=== PATIENT | female | born 1960 | race Caucasian/White ===

== ENCOUNTER 2019-08-30 06:41 | Day surgery (SDC) | payer BC ==
[~2019-08-30 06:41] MED LIST: ceFAZolin 1 GM in Premix Bag 1 BAG IV ONE
--- NOTE | 2019-08-30 07:06 | PCM.PREANE ---
Preanesthetic Assessment - Anesthesia/Transfusion/Family Hx Anesthesia History: Prior Anesthesia Without Reaction Family History of Anesthesia Reaction: No Transfusion History: No Prior Transfusion(s) - Review of Systems General: No Symptoms Pulmonary: No Symptoms Cardiovascular: No Symptoms Gastrointestinal: No Symptoms Neurological: No Symptoms Other: Reports: None - Physical Assessment NPO Status Date: 08/29/19 Height: 5 ft 2 in Weight: 65.771 kg ASA Class: 2 Mental Status: Alert & Oriented x3 Airway Class: Mallampati = 2 Dentition: Reports: Normal Dentition ROM/Head Extension: Full Lungs: Clear to Auscultation, Normal Respiratory Effort Cardiovascular: Regular Rate, Regular Rhythm - Allergies Allergies/Adverse Reactions: Allergies Allergy/AdvReac Type Severity Reaction Status Date / Time No Known Allergies Allergy Verified 08/30/19 07:02 - Blood Blood Available: No - Anesthesia Plan Pre-Op Medication Ordered: None - Acknowledgements Anesthesia Type Planned: General Anesthesia Pt an Appropriate Candidate for the Planned Anesthesia: Yes Alternatives and Risks of Anesthesia Discussed w Pt/Guardian: Yes Pt/Guardian Understands and Agrees with Anesthesia Plan: Yes PreAnesthesia Questionnaire HEENT History: Reports: Other (See Below) Other HEENT History: wears glasses/contacts Cardiovascular History: Reports: None Respiratory History: Reports: None Gastrointestinal History: Reports: Other (See Below) Other Gastrointestinal History: occasional heartburn Genitourinary History: Reports: None PERSONAL PROTECTION SPECIALIST History: Reports: Musculoskeletal History: Reports: None Neurological History: Reports: None Psychiatric History: Reports: None Endocrine/Metabolic History: Reports: None Hematologic History: Reports: None Immunologic History: Reports: None Oncologic (Cancer) History: Reports: None Dermatologic History: Reports: None - Past Surgical History Head Surgeries/Procedures: Reports: None HEENT Surgical History: Reports: Tonsillectomy Cardiovascular Surgical History: Reports: None Respiratory Surgical History: Reports: None GI Surgical History: Reports: None Female Surgical History: Reports: Breast Biopsy Endocrine Surgical History: Reports: None Neurological Surgical History: Reports: None Musculoskeletal Surgical History: Reports: None Oncologic Surgical History: Reports: Biopsy of Breast Dermatological Surgical History: Reports: Other (See Below) - SUBSTANCE USE Smoking Status *Q: Former Smoker Tobacco Use Within Last Twelve Months: No - HOME MEDS Home Medications: Home Meds Melatonin 10 mg PO BEDTIME 08/26/19 [History] Niacin 1 tab PO DAILY 08/26/19 [History] [place]-3/DHA/Epa/Fish Oil [Fish Oil 1,000 mg Softgel] 1 tab PO DAILY 08/26/19 [ History] estradioL [Estradiol] 10 mcg VAG ASDIRECTED 08/26/19 [History] - CURRENT (IN HOUSE) MEDS Current Meds: Current Medications Lactated Ringer's (Ringers, Lactated) 1,000 mls @ 125 mls/hr IV ASDIRECTED [place] Discontinued Medications Cefazolin Sodium/Dextrose 1 gm (/ Premix) 50 mls @ 100 mls/hr IV ONETIME ONE Stop: 08/30/19 05:29
[2019-08-30] MEDS: Lactated Ringers 1,000 ML IV SCH ×2 (07:15→12:43)
[2019-08-30] MEDS ORDERED: Propofol 200 MG/20 ML SDV ONE (07:19)
[2019-08-30] MEDS ORDERED: Midazolam 1 MG/ML 2 ML SDV ONE (07:20)
[2019-08-30] MEDS ORDERED: Lidocaine 2% 5 ML SDV ONE (07:20)
[2019-08-30] MEDS ORDERED: fentaNYL 250 MCG/5 ML SDV ONE (07:20)
[2019-08-30] MEDS ORDERED: Rocuronium Bromide 50 MG/5 ML Syringe ONE (07:21)
[2019-08-30] MEDS ORDERED: Fluorescein 5 ML Vial ONE (07:32)
[2019-08-30 07:38] LABS: BLOOD UREA NITROGEN,BUN 10 mg/dL (7.0-18.0); CARBON DIOXIDE,CO2 24.1 mmol/L (21.0-32.0); CHLORIDE,CL 105 mmol/L (98-107); GLUCOSE RANDOM 106 mg/dL (74-106); SODIUM,NA 141 mmol/L (136-145)
[2019-08-30] MEDS ORDERED: ePHEDrine 50 MG/ML SDV ONE (08:01)
[2019-08-30] MEDS ORDERED: Sodium Chloride 0.9% 20 ML ONE (08:01)
[2019-08-30] MEDS ORDERED: Dexamethasone 4 MG/ML 5 ML MDV ONE (08:32)
[2019-08-30] MEDS ORDERED: Ondansetron 4 MG/2 ML SDV ONE (08:32)
[2019-08-30] MEDS ORDERED: Sugammadex Sodium 200 MG/2 ML VIAL ONE (08:34)
[2019-08-30] MEDS ORDERED: 50% Dextrose in Water 50 ML Syringe IVPUSH PRN (08:35)
[2019-08-30] MEDS ORDERED: Albuterol 0.083% 2.5 MG/3 ML Neb Soln NEB PRN (08:35)
[2019-08-30] MEDS ORDERED: Atropine 0.1 MG/ML 10 ML Syringe IVPUSH PRN ×2 (08:35)
[2019-08-30] MEDS ORDERED: EPINEPHrine 1:10,000 1 MG/10 ML Syringe IVPUSH PRN (08:35)
[2019-08-30] MEDS ORDERED: fentaNYL 100 MCG/2 ML SDV IVPUSH PRN (08:35)
[2019-08-30] MEDS ORDERED: Naloxone 0.4 MG/ML Syringe IVPUSH PRN (08:35)
[2019-08-30] MEDS ORDERED: Ketorolac 30 MG/ML SDV IVPUSH PRN ×3 (08:37→09:21)
[2019-08-30] MEDS ORDERED: Ketorolac 30 MG/ML SDV IVPUSH ONE (09:21)
[2019-08-30] MEDS ORDERED: Ondansetron 4 MG/2 ML SDV IVPUSH PRN (09:21)
[2019-08-30] MEDS ORDERED: Promethazine 25 MG/ML SDV IM PRN (09:21)
[2019-08-30] MEDS ORDERED: Morphine 4 MG/ML Syringe IVPUSH PRN (09:21)
[2019-08-30] MEDS ORDERED: Acetaminophen/oxyCODONE 325-5 MG Tab PO PRN (09:21)
--- NOTE | 2019-08-30 09:26 | PCM.OPNOTE ---
- General Post-Op/Procedure Note Date of Surgery/Procedure: 08/30/19 Operative Procedure(s): TVH/anterior repair/culdoplasty/cystoscopy Findings: 3rd degree uterine prolapse with 2nd degree cystocele. Normal appearing ovaries. Bilateral patent ureters Pre Op Diagnosis: Symptomatic incomplete uterovaginal prolapse Post-Op Diagnosis: Same Anesthesia Technique: General ET Tube Primary Surgeon: Estella Buckner Fund Controller: Bernice Azar Fluid Replacement, Intraop: 1,000 EBL in mLs: 100 Complications: none known Condition: Good
--- NOTE | 2019-08-30 09:47 | PCM.POSTAN ---
POST ANESTHESIA ASSESSMENT - MENTAL STATUS Mental Status: Alert, Oriented - VITAL SIGNS Vital Signs: Last Vital Signs Temp 97.3 F 08/30/19 09:25 Pulse 90 08/30/19 09:40 Resp 12 08/30/19 09:40 BP 115/55 L 08/30/19 09:40 Pulse Ox 99 08/30/19 09:40 - RESPIRATORY Respiratory Status: Respiratory Rate WNL, Airway Patent, O2 Saturation Stable - CARDIOVASCULAR CV Status: Pulse Rate WNL, Blood Pressure Stable - GASTROINTESTINAL GI Status: No Symptoms - POST OP HYDRATION Hydration Status: Adequate & Stable
--- NOTE | 2019-08-30 10:06 | PCM.POSTAN ---
POST ANESTHESIA ASSESSMENT - MENTAL STATUS Mental Status: Oriented - VITAL SIGNS Vital Signs: Last Vital Signs Temp 36.3 C 08/30/19 09:25 Pulse 83 08/30/19 09:55 Resp 11 L 08/30/19 09:55 BP 110/54 L 08/30/19 09:55 Pulse Ox 95 08/30/19 09:55 - RESPIRATORY Respiratory Status: Respiratory Rate WNL, Airway Patent, O2 Saturation Stable, Supplemental Oxygen - CARDIOVASCULAR CV Status: Pulse Rate WNL, Blood Pressure Stable - GASTROINTESTINAL GI Status: No Symptoms - POST OP HYDRATION Hydration Status: Adequate & Stable
[2019-08-30] MEDS: Acetaminophen/oxyCODONE 325-5 MG Tab PO PRN ×3 (13:28→22:30)
--- NOTE | 2019-08-30 16:58 | PCM.SURGPN ---
- General Info Date of Service: 08/30/19 POD#: 0 Functional Status: Reports: Pain Controlled, Tolerating Diet, Ambulating - Review of Systems General: Reports: Fatigue. Denies: Fever, Weakness Pulmonary: Denies: Shortness of Breath Cardiovascular: Denies: Chest Pain, Palpitations, Lightheadedness Gastrointestinal: Reports: Abdominal Pain (mild pressure, cramping). Denies: Nausea, Vomiting Genitourinary: Denies: Flank Pain Musculoskeletal: Reports: No Symptoms Skin: Reports: No Symptoms Neurological: Reports: No Symptoms Psychiatric: Reports: No Symptoms - Patient Data Vitals - Most Recent: Last Vital Signs Temp 36.2 C 08/30/19 10:28 Pulse 81 08/30/19 11:15 Resp 16 08/30/19 11:15 BP 116/61 08/30/19 11:15 Pulse Ox 95 08/30/19 11:15 Weight - Most Recent: 65.771 kg I&O - Last 24 Hours: Intake & Output 08/30/19 08/30/19 08/30/19 06:59 14:59 22:59 Intake Total 2700 Output Total 75 Balance 2625 Lab Results Last 24 Hrs: Laboratory Results - last 24 hr 08/30/19 08/30/19 08/30/19 Range/Units 07:08 07:08 07:08 WBC 6.26 (4.0-11.0) K/uL RBC 4.73 (4.30-5.90) M/uL Hgb 14.3 (12.0-16.0) g/dL Hct 43.6 (36.0-46.0) % MCV 92.2 (80.0-98.0) fL MCH 30.2 (27.0-32.0) pg MCHC 32.8 (31.0-37.0) g/dL RDW Std Deviation 48.1 (28.0-62.0) fl RDW Coeff of [place] 14 (11.0-15.0) % Plt Count 237 (150-400) K/uL MPV 9.40 (7.40-12.00) fL Nucleated RBC % 0.0 /100WBC Nucleated RBCs # 0 K/uL Sodium 141 (136-145) mmol/L Potassium 4.0 (3.5-5.1) mmol/L Chloride 105 (98-107) mmol/L Carbon Dioxide 24.1 (21.0-32.0) mmol/L BUN 10 (7.0-18.0) mg/dL Creatinine 0.8 (0.6-1.0) mg/dL Est Cr Clr Drug Dosing 59.15 mL/min Estimated GFR (MDRD) > 60.0 ml/min Glucose 106 (74-106) mg/dL Calcium 9.2 (8.5-10.1) mg/dL Blood Type A POSITIVE Antibody Screen NEGATIVE Med Orders - Current: Current Medications Albuterol (Proventil Neb Soln) 2.5 mg NEB ONETIME PRN PRN Reason: Wheezing Atropine Sulfate (Atropine 0.1 Mg/Ml) 0.5 mg IVPUSH ASDIRECTED PRN PRN Reason: Hypo-perfusion Atropine Sulfate (Atropine 0.1 Mg/Ml) 1 mg IVPUSH ASDIRECTED PRN PRN Reason: Hypo-Perfusion Dextrose/Water (Dextrose 50% In Water) 50 ml IVPUSH ASDIRECTED PRN PRN Reason: Hypoglycemia Docusate Sodium (Colace) 100 mg PO BID [facility] Epinephrine HCl (Epinephrine 1:10,000) 1 mg IVPUSH ASDIRECTED PRN PRN Reason: ACLS Guidelines Fentanyl (Sublimaze) 50 mcg IVPUSH Q5M PRN PRN Reason: Pain Lactated Ringer's (Ringers, Lactated) 1,000 mls @ 125 mls/hr IV ASDIRECTED [facility] Last Admin: 08/30/19 12:43 Dose: 125 mls/hr Ketorolac Tromethamine (Toradol) 30 mg IVPUSH Q6H PRN PRN Reason: Pain (severe 7-10) Stop: 09/04/19 09:21 Morphine Sulfate (Morphine) 4 mg IVPUSH Q2H PRN PRN Reason: Pain (severe 7-10) Last Admin: 08/30/19 11:22 Dose: 4 mg Naloxone HCl (Narcan) 0.1 mg IVPUSH ASDIRECTED PRN PRN Reason: Respiratory Depression Ondansetron HCl (Zofran) 4 mg IVPUSH Q6H PRN PRN Reason: Nausea/Vomiting Oxycodone/Acetaminophen (Percocet 325-5 Mg) 1 tab PO Q4H PRN PRN Reason: Pain (moderate 4-6) Oxycodone/Acetaminophen (Percocet 325-5 Mg) 2 tab PO Q4H PRN PRN Reason: Pain (moderate 4-6) Last Admin: 08/30/19 13:28 Dose: 2 tab Promethazine HCl (Phenergan) 25 mg IM Q6H PRN PRN Reason: Nausea/Vomiting Discontinued Medications Dexamethasone (Dexamethasone) Confirm Administered Dose 20 mg .ROUTE .STK-MED ONE Stop: 08/30/19 08:33 Ephedrine Sulfate (Ephedrine Sulfate) Confirm Administered Dose 50 mg .ROUTE .STK-MED ONE Stop: 08/30/19 08:02 Fentanyl (Sublimaze) Confirm Administered Dose 250 mcg .ROUTE .STK-MED ONE Stop: 08/30/19 07:21 Fluorescein Sodium (Ak-Fluor) Confirm Administered Dose 5 ml .ROUTE .STK-MED ONE Stop: 08/30/19 07:33 Cefazolin Sodium/Dextrose 1 gm (/ Premix) 50 mls @ 100 mls/hr IV ONETIME ONE Stop: 08/30/19 05:29 Last Admin: 08/30/19 10:42 Dose: Not Given Cefazolin Sodium/Dextrose (Ancef) Confirm Administered Dose 50 mls @ as directed .ROUTE .STK-MED ONE Stop: 08/30/19 07:46 Sodium Chloride (Normal Saline) Confirm Administered Dose 20 mls @ as directed .ROUTE .STK-MED ONE Stop: 08/30/19 08:02 Acetaminophen (Ofirmev) Confirm Administered Dose 100 mls @ as directed .ROUTE .STK-MED ONE Stop: 08/30/19 08:35 Ketorolac Tromethamine (Toradol) 30 mg IVPUSH Q6H PRN PRN Reason: Breakthrough Pain Stop: 09/04/19 08:37 Ketorolac Tromethamine (Toradol) 30 mg IVPUSH ONETIME PRN PRN Reason: Breakthrough Pain Ketorolac Tromethamine (Toradol) 30 mg IVPUSH ONETIME ONE Stop: 08/30/19 09:22 Last Admin: 08/30/19 11:15 Dose: Not Given Lidocaine (Xylocaine-Mpf 2%) Confirm Administered Dose 5 ml .ROUTE .STK-MED ONE Stop: 08/30/19 07:21 Midazolam HCl (Versed 1 Mg/Ml) Confirm Administered Dose 2 mg .ROUTE .STK-MED ONE Stop: 08/30/19 07:21 Ondansetron HCl (Zofran) Confirm Administered Dose 4 mg .ROUTE .STK-MED ONE Stop: 08/30/19 08:33 Propofol (Diprivan 20 Ml) Confirm Administered Dose 200 mg .ROUTE .STK-MED ONE Stop: 08/30/19 07:20 Rocuronium Fortuna (Rocuronium Fortuna) Confirm Administered Dose 50 mg .ROUTE .STK-MED ONE Stop: 08/30/19 07:22 Sugammadex Sodium (Bridion) Confirm Administered Dose 200 mg .ROUTE .STK-MED ONE Stop: 08/30/19 08:35 - Exam General: Alert, Oriented Lungs: Normal Respiratory Effort Cardiovascular: Regular Rate, Regular Rhythm GI/Abdominal Exam: Normal Bowel Sounds, Soft Extremities: Pedal Edema (trace). No: Priscilla's Sign Skin: Warm, Dry, Intact Psy/Mental Status: Alert, Normal Affect Sepsis Event Note - Evaluation Sepsis Screening Result: No Definite Risk - Focused Exam Vital Signs: Vital Signs Temp Pulse Resp BP Pulse Ox 08/30/19 11:15 81 16 116/61 95 08/30/19 11:00 79 16 121/64 95 08/30/19 10:40 78 16 116/69 96 08/30/19 10:28 36.2 C 81 16 116/58 L 96 08/30/19 10:00 82 11 L 109/60 95 08/30/19 09:55 83 11 L 110/54 L 95 08/30/19 09:50 88 11 L 108/60 94 L 08/30/19 09:45 87 12 109/52 L 95 08/30/19 09:40 90 12 115/55 L 99 08/30/19 09:35 90 12 114/54 L 96 08/30/19 09:30 92 12 110/57 L 98 08/30/19 09:25 36.3 C 76 16 118/51 L 98 08/30/19 07:25 75 16 108/71 97 Date Exam was Performed: 08/30/19 Time Exam was Performed: 16:46 - Problem List & Annotations (1) Incomplete uterovaginal prolapse SNOMED Code(s): 637261929 Code(s): N81.2 - INCOMPLETE UTEROVAGINAL PROLAPSE Status: Acute Current Visit: Yes - Problem List Review Problem List Initiated/Reviewed/Updated: Yes - My Orders Last 24 Hours: Active Orders 24 hr Category Date Time Status Patient Status [ADT] Routine ADT 08/30/19 05:00 Active Patient Status [ADT] Routine ADT 08/30/19 09:21 Active Antiembolic Devices [RC] PER UNIT ROUTINE Care 08/30/19 06:36 Active Antiembolic Devices [RC] PER UNIT ROUTINE Care 08/30/19 09:21 Active Notify Provider Intake and Out [RC] ASDIRECTED Care 08/30/19 09:21 Active Notify Provider Vital Signs [RC] ASDIRECTED Care 08/30/19 08:37 Active Notify Provider Vital Signs [RC] ASDIRECTED Care 08/30/19 09:21 Active Oxygen Therapy [RC] ASDIRECTED Care 08/30/19 09:21 Active Oxygen Therapy [RC] PRN Care 08/30/19 08:37 Active RT Aerosol Therapy [RC] ASDIRECTED Care 08/30/19 08:37 Active RT Aerosol Therapy [RC] ASDIRECTED Care 08/30/19 08:37 Active RT Incentive Spirometry [RC] Q2HWA Care 08/30/19 09:21 Active Up With Assistance [RC] PER UNIT ROUTINE Care 08/30/19 09:21 Active Up ad Isela [RC] PER UNIT ROUTINE Care 08/30/19 09:21 Active Urinary Catheter Removal [RC] Per Unit Routine Care 08/30/19 09:21 Active Vital Signs [RC] PER UNIT ROUTINE Care 08/30/19 05:00 Active Vital Signs [RC] PER UNIT ROUTINE Care 08/30/19 09:21 Active Regular Diet [DIET] Diet 08/30/19 Lunch Active BASIC METABOLIC PANEL,BMP [CHEM] AM Lab 08/31/19 05:11 Ordered CBC WITH AUTO DIFF [HEME] AM Lab 08/31/19 05:11 Ordered Acetaminophen/oxyCODONE [Percocet 325-5 MG] Med 08/30/19 09:21 Active 1 tab PO Q4H PRN Acetaminophen/oxyCODONE [Percocet 325-5 MG] Med 08/30/19 09:21 Active 2 tab PO Q4H PRN Albuterol [Proventil Neb Soln] Med 08/30/19 08:35 Active 2.5 mg NEB ONETIME PRN Atropine [Atropine 0.1 MG/ML] Med 08/30/19 08:35 Active 0.5 mg IVPUSH ASDIRECTED PRN Atropine [Atropine 0.1 MG/ML] Med 08/30/19 08:35 Active 1 mg IVPUSH ASDIRECTED PRN Dextrose 50% in Water Med 08/30/19 08:35 Active 50 ml IVPUSH ASDIRECTED PRN Docusate Sodium [Colace] Med 08/30/19 21:00 Active 100 mg PO BID EPINEPHrine [EPINEPHrine 1:10,000] Med 08/30/19 08:35 Active 1 mg IVPUSH ASDIRECTED PRN Ketorolac [Toradol] Med 08/30/19 09:21 Active 30 mg IVPUSH Q6H PRN Lactated Ringers [Ringers, Lactated] 1,000 ml Med 08/30/19 06:45 Active IV ASDIRECTED Morphine Med 08/30/19 09:21 Active 4 mg IVPUSH Q2H PRN Naloxone [Narcan] Med 08/30/19 08:35 Active 0.1 mg IVPUSH ASDIRECTED PRN Ondansetron [Zofran] Med 08/30/19 09:21 Active 4 mg IVPUSH Q6H PRN Promethazine [Phenergan] Med 08/30/19 09:21 Active 25 mg IM Q6H PRN fentaNYL [Sublimaze] Med 08/30/19 08:35 Active 50 mcg IVPUSH Q5M PRN Perineal Care [OM.PC] Per Unit Routine Oth 08/30/19 09:22 Ordered Peripheral IV Discontinue [OM.PC] Routine Oth 08/30/19 09:21 Ordered Peripheral IV Insertion Adult [OM.PC] Urgent Oth 08/30/19 05:00 Ordered Remove Vaginal Packing [OM.PC] Per Unit Routine Oth 08/30/19 09:22 Ordered SCD [Sequential Compression Device] [OM.PC] Routine Oth 08/30/19 06:36 Ordered Sequential Compression Device [OM.PC] Per Unit Routine Oth 08/30/19 05:00 Ordered Sequential Compression Device [OM.PC] Per Unit Routine Oth 08/30/19 09:21 Ordered Resuscitation Status Routine Resus Stat 08/30/19 09:21 Ordered Medication Orders Albuterol (Proventil Neb Soln) 2.5 mg NEB ONETIME PRN PRN Reason: Wheezing Atropine Sulfate (Atropine 0.1 Mg/Ml) 0.5 mg IVPUSH ASDIRECTED PRN PRN Reason: Hypo-perfusion Atropine Sulfate (Atropine 0.1 Mg/Ml) 1 mg IVPUSH ASDIRECTED PRN PRN Reason: Hypo-Perfusion Dextrose/Water (Dextrose 50% In Water) 50 ml IVPUSH ASDIRECTED PRN PRN Reason: Hypoglycemia Docusate Sodium (Colace) 100 mg PO BID [facility] Epinephrine HCl (Epinephrine 1:10,000) 1 mg IVPUSH ASDIRECTED PRN PRN Reason: ACLS Guidelines Fentanyl (Sublimaze) 50 mcg IVPUSH Q5M PRN PRN Reason: Pain Lactated Ringer's (Ringers, Lactated) 1,000 mls @ 125 mls/hr IV ASDIRECTED [facility] Last Admin: 08/30/19 12:43 Dose: 125 mls/hr Infusion: 08/30/19 12:43 Dose: 125 mls/hr Admin: 08/30/19 07:15 Dose: 125 mls/hr Ketorolac Tromethamine (Toradol) 30 mg IVPUSH Q6H PRN PRN Reason: Pain (severe 7-10) Stop: 09/04/19 09:21 Morphine Sulfate (Morphine) 4 mg IVPUSH Q2H PRN PRN Reason: Pain (severe 7-10) Last Admin: 08/30/19 11:22 Dose: 4 mg Naloxone HCl (Narcan) 0.1 mg IVPUSH ASDIRECTED PRN PRN Reason: Respiratory Depression Ondansetron HCl (Zofran) 4 mg IVPUSH Q6H PRN PRN Reason: Nausea/Vomiting Oxycodone/Acetaminophen (Percocet 325-5 Mg) 1 tab PO Q4H PRN PRN Reason: Pain (moderate 4-6) Oxycodone/Acetaminophen (Percocet 325-5 Mg) 2 tab PO Q4H PRN PRN Reason: Pain (moderate 4-6) Last Admin: 08/30/19 13:28 Dose: 2 tab Promethazine HCl (Phenergan) 25 mg IM Q6H PRN PRN Reason: Nausea/Vomiting - Assessment Assessment (Free Text/Narrative):: POD 0 status post TVH/Anterior repair/culdoplasty - Plan Plan (Free Text/Narrative):: Doing well overall. Reviewed intraoperative findings. Ambulate halls this pm. Reviewed discharge instructions. Vaginal packing remains in place with baker. Dr Azar will cover for call weekend. Patient is aware.
--- NOTE | 2019-08-30 20:36 | OR ---
SURGEON: Estella Buckner M.D. DATE OF PROCEDURE: 08/30/2019 PREOPERATIVE DIAGNOSIS: Incomplete uterovaginal prolapse, symptomatic. POSTOPERATIVE DIAGNOSIS: Incomplete uterovaginal prolapse, symptomatic. PROCEDURE: Total vaginal hysterectomy, anterior colporrhaphy, Castillo culdoplasty with cystoscopy. PROTOTYPE CARPENTER: Bernice Azar M.D. ANESTHESIA: General endotracheal anesthesia. ESTIMATED BLOOD LOSS: 100 mL. FLUIDS: 1000 mL of crystalloid. COMPLICATIONS: None known. FINDINGS: Third-degree uterine prolapse. Second-degree cystocele. Normal-appearing ovaries. Bilateral patent ureters. DISPOSITION: The patient to PACU in stable condition. Specimens to pathology. PROCEDURE DETAILS: Madalyn is a 58-year-old female who presents with symptoms associated with incomplete uterovaginal prolapse. Options have been discussed with her and she would like to proceed with surgical intervention. Risks of procedure have been discussed. Proper consent obtained. The patient was taken to the operating room where she underwent general endotracheal anesthesia. She has been preoperatively tested for coronavirus and was found to be negative. The patient was prepped and draped in the usual sterile fashion. Hernandez to gravity. SCDs to the lower extremities. Time-out was performed. She received Ancef prophylactically. A weighted speculum and anterior Nicholas were placed in the vagina. Cervix was grasped with Amando clamp. The cervix was now circumscribed with Bovie cautery. Overlying anterior mucosa was dissected bluntly away from underlying peritoneum. Posterior peritoneum was tented downward and entered sharply. Longer weighted speculum replaced the shorter. Anteriorly, the anterior peritoneum was tented upward and entered sharply with Metzenbaum scissors. A Nicholas was now placed to mobilize the bladder away from operative field. Anita clamps were utilized to secure uterosacral ligaments on either side, secured, transected, and suture ligated with 2-0 Vicryl. The remainder of suture will be 2-0 Vicryl unless otherwise indicated. Further pedicle on each side was able to be secured including the cardinal ligament, base of the broad ligament, transected, and suture ligated. Further pedicle on either side was able to be secured incorporating the remainder of the broad ligament and the utero tubo-ovarian pedicle, transected, and suture ligated first with a tie and a pass followed by suture tie. The specimen was now handed off to hydroelectric plant technician. Pedicles were inspected. There was some oozing along the right utero-ovarian pedicle. This was cauterized and then suture ligated. Hemostasis appeared evident. Tubes and ovaries were able to be visualized and found to be normal in appearance. The remainder of the pedicles were inspected and found to be hemostatic. Therefore, attention was turned to performing anterior repair. Along the midline anterior vaginal mucosa, the either side was grasped with Allis clamp. Hydrodissection was performed with normal saline and using Metzenbaum scissors, a sagittal midline anterior vaginal mucosa incision was created. The edges of the mucosa were now grasped with Allis clamps in serial fashion. The overlying mucosa was dissected sharply and bluntly from underlying muscularis layer. The lateral edges of the stronger portion of the muscularis layer were now replicated with inverted suture technique using 2-0 Vicryl, which reduced the defect nicely. The excess vaginal mucosa was trimmed. The vaginal mucosa was now reapproximated using 0 Vicryl in continuous running locked fashion. Attention was now turned to performing culdoplasty. The uterosacral ligament on either side was able to be secured and using an 0 Ethibond, the left uterosacral ligament was able to be secured reefing the posterior peritoneum and then also incorporating the right uterosacral ligament. A similar fashion was performed with the 2-0 Vicryl that was already in place with the left pedicle of the uterosacral ligament. The next suture was just cephalic to the Ethibond. This suture was now tied down followed by the Ethibond suture being tied down. The sutures were trimmed and remainder of the vaginal cuff was closed with the 0 Vicryl. Hernandez catheter was now removed. The patient had received IV fluorescein as well as Lasix via Anesthesia. The Hernandez catheter was removed and cystoscope was introduced into the bladder. The dome of the bladder was able to be visualized and found to be intact. Trigone was now inspected. The left ureteral orifice followed by the right ureteral orifice were able to be visualized. Fluorescein-dyed urine was seen streaming from them helping to ensure ureteral patency. The bladder was now drained. The cystoscope was removed and Hernandez catheter was replaced. The vaginal cuff was once again inspected and found to be hemostatic. Vaginal packing was gently placed. Sponge, instrument, and needle counts were correct x2. The patient has tolerated the procedure well overall. She will go to PACU in stable condition. Specimens to pathology. RODRIGO / [place] /[id number]
[2019-08-30] MEDS: Docusate Sodium 100 MG Cap PO SCH (21:20)
[2019-08-31 07:31] LABS: BLOOD UREA NITROGEN,BUN 13 mg/dL (7.0-18.0); CARBON DIOXIDE,CO2 24.6 mmol/L (21.0-32.0); CHLORIDE,CL 105 mmol/L (98-107); GLUCOSE RANDOM 100 mg/dL (74-106); POTASSIUM,K 3.7 mmol/L (3.5-5.1); SODIUM,NA 138 mmol/L (136-145)
[2019-08-31] MEDS: Docusate Sodium 100 MG Cap PO SCH (08:30)
[2019-08-31] MEDS: Acetaminophen/oxyCODONE 325-5 MG Tab PO PRN (08:31)
--- NOTE | 2019-08-31 10:49 | PCM.SURGPN ---
- General Info Date of Service: 08/31/19 Date of Surgery/Procedure: 08/30/19 POD#: 1 Post-Op Diagnosis: incomplete uterovaginal prolapse Functional Status: Reports: Pain Controlled, Tolerating Diet, Ambulating, Urinating (packing and catheter removed this am has voided) - Review of Systems General: Reports: No Symptoms HEENT: Reports: No Symptoms Pulmonary: Reports: No Symptoms Cardiovascular: Reports: No Symptoms Gastrointestinal: Reports: No Symptoms Genitourinary: Reports: No Symptoms Musculoskeletal: Reports: No Symptoms Skin: Reports: No Symptoms Neurological: Reports: No Symptoms Psychiatric: Reports: No Symptoms - Patient Data Vitals - Most Recent: Last Vital Signs Temp 37.7 C 08/31/19 07:31 Pulse 84 08/31/19 07:31 Resp 14 08/31/19 07:31 BP 110/59 L 08/31/19 07:31 Pulse Ox 92 L 08/31/19 07:31 Weight - Most Recent: 65.771 kg I&O - Last 24 Hours: Intake & Output 08/30/19 08/31/19 08/31/19 22:59 06:59 14:59 Intake Total 1190 900 Output Total 1200 2330 Balance -10 -1430 Lab Results Last 24 Hrs: Laboratory Results - last 24 hr 08/31/19 08/31/19 Range/Units 06:05 06:05 WBC 10.48 (4.0-11.0) K/uL RBC 3.84 L (4.30-5.90) M/uL Hgb 11.3 L (12.0-16.0) g/dL Hct 35.8 L (36.0-46.0) % MCV 93.2 (80.0-98.0) fL MCH 29.4 (27.0-32.0) pg MCHC 31.6 (31.0-37.0) g/dL RDW Std Deviation 49.2 (28.0-62.0) fl RDW Coeff of [place] 14 (11.0-15.0) % Plt Count 194 (150-400) K/uL MPV 9.30 (7.40-12.00) fL Neut % (Auto) 71.9 (48.0-80.0) % Lymph % (Auto) 19.9 (16.0-40.0) % [place] % (Auto) 7.8 (0.0-15.0) % Eos % (Auto) 0.3 (0.0-7.0) % Baso % (Auto) 0.1 (0.0-1.5) % Neut # (Auto) 7.5 H (1.4-5.7) K/uL Lymph # (Auto) 2.1 (0.6-2.4) K/uL Spencer # (Auto) 0.8 (0.0-0.8) K/uL Eos # (Auto) 0.0 (0.0-0.7) K/uL Baso # (Auto) 0.0 (0.0-0.1) K/uL Nucleated RBC % 0.0 /100WBC Nucleated RBCs # 0 K/uL Sodium 138 (136-145) mmol/L Potassium 3.7 (3.5-5.1) mmol/L Chloride 105 (98-107) mmol/L Carbon Dioxide 24.6 (21.0-32.0) mmol/L BUN 13 (7.0-18.0) mg/dL Creatinine 0.8 (0.6-1.0) mg/dL Est Cr Clr Drug Dosing 59.15 mL/min Estimated GFR (MDRD) > 60.0 ml/min Glucose 100 (74-106) mg/dL Calcium 8.6 (8.5-10.1) mg/dL Med Orders - Current: Current Medications Docusate Sodium (Colace) 100 mg PO BID [facility] Last Admin: 08/31/19 08:30 Dose: 100 mg Epinephrine HCl (Epinephrine 1:10,000) 1 mg IVPUSH ASDIRECTED PRN PRN Reason: ACLS Guidelines Lactated Ringer's (Ringers, Lactated) 1,000 mls @ 125 mls/hr IV ASDIRECTED [facility] Last Admin: 08/30/19 12:43 Dose: 125 mls/hr Ketorolac Tromethamine (Toradol) 30 mg IVPUSH Q6H PRN PRN Reason: Pain (severe 7-10) Stop: 09/04/19 09:21 Morphine Sulfate (Morphine) 4 mg IVPUSH Q2H PRN PRN Reason: Pain (severe 7-10) Last Admin: 08/30/19 11:22 Dose: 4 mg Ondansetron HCl (Zofran) 4 mg IVPUSH Q6H PRN PRN Reason: Nausea/Vomiting Oxycodone/Acetaminophen (Percocet 325-5 Mg) 1 tab PO Q4H PRN PRN Reason: Pain (moderate 4-6) Last Admin: 08/31/19 04:48 Dose: 1 tab Oxycodone/Acetaminophen (Percocet 325-5 Mg) 2 tab PO Q4H PRN PRN Reason: Pain (moderate 4-6) Last Admin: 08/31/19 08:31 Dose: 2 tab Promethazine HCl (Phenergan) 25 mg IM Q6H PRN PRN Reason: Nausea/Vomiting Discontinued Medications Albuterol (Proventil Neb Soln) 2.5 mg NEB ONETIME PRN PRN Reason: Wheezing Atropine Sulfate (Atropine 0.1 Mg/Ml) 0.5 mg IVPUSH ASDIRECTED PRN PRN Reason: Hypo-perfusion Atropine Sulfate (Atropine 0.1 Mg/Ml) 1 mg IVPUSH ASDIRECTED PRN PRN Reason: Hypo-Perfusion Dexamethasone (Dexamethasone) Confirm Administered Dose 20 mg .ROUTE .STK-MED ONE Stop: 08/30/19 08:33 Dextrose/Water (Dextrose 50% In Water) 50 ml IVPUSH ASDIRECTED PRN PRN Reason: Hypoglycemia Ephedrine Sulfate (Ephedrine Sulfate) Confirm Administered Dose 50 mg .ROUTE .STK-MED ONE Stop: 08/30/19 08:02 Fentanyl (Sublimaze) Confirm Administered Dose 250 mcg .ROUTE .STK-MED ONE Stop: 08/30/19 07:21 Fentanyl (Sublimaze) 50 mcg IVPUSH Q5M PRN PRN Reason: Pain Fluorescein Sodium (Ak-Fluor) Confirm Administered Dose 5 ml .ROUTE .STK-MED ONE Stop: 08/30/19 07:33 Cefazolin Sodium/Dextrose 1 gm (/ Premix) 50 mls @ 100 mls/hr IV ONETIME ONE Stop: 08/30/19 05:29 Last Admin: 08/30/19 10:42 Dose: Not Given Cefazolin Sodium/Dextrose (Ancef) Confirm Administered Dose 50 mls @ as directed .ROUTE .STK-MED ONE Stop: 08/30/19 07:46 Sodium Chloride (Normal Saline) Confirm Administered Dose 20 mls @ as directed .ROUTE .STK-MED ONE Stop: 08/30/19 08:02 Acetaminophen (Ofirmev) Confirm Administered Dose 100 mls @ as directed .ROUTE .STK-MED ONE Stop: 08/30/19 08:35 Ketorolac Tromethamine (Toradol) 30 mg IVPUSH Q6H PRN PRN Reason: Breakthrough Pain Stop: 09/04/19 08:37 Ketorolac Tromethamine (Toradol) 30 mg IVPUSH ONETIME PRN PRN Reason: Breakthrough Pain Ketorolac Tromethamine (Toradol) 30 mg IVPUSH ONETIME ONE Stop: 08/30/19 09:22 Last Admin: 08/30/19 11:15 Dose: Not Given Lidocaine (Xylocaine-Mpf 2%) Confirm Administered Dose 5 ml .ROUTE .STK-MED ONE Stop: 08/30/19 07:21 Midazolam HCl (Versed 1 Mg/Ml) Confirm Administered Dose 2 mg .ROUTE .STK-MED ONE Stop: 08/30/19 07:21 Naloxone HCl (Narcan) 0.1 mg IVPUSH ASDIRECTED PRN PRN Reason: Respiratory Depression Ondansetron HCl (Zofran) Confirm Administered Dose 4 mg .ROUTE .STK-MED ONE Stop: 08/30/19 08:33 Propofol (Diprivan 20 Ml) Confirm Administered Dose 200 mg .ROUTE .STK-MED ONE Stop: 08/30/19 07:20 Rocuronium [place] (Rocuronium [place]) Confirm Administered Dose 50 mg .ROUTE .STK-MED ONE Stop: 08/30/19 07:22 Sugammadex Sodium (Bridion) Confirm Administered Dose 200 mg .ROUTE .STK-MED ONE Stop: 08/30/19 08:35 - Exam Wound/Incisions: Other (vaginal packing removed by nursing staff this am. ) General: Alert, Oriented Neck: Supple Lungs: Normal Respiratory Effort GI/Abdominal Exam: Normal Bowel Sounds, Soft, Non-Tender, No Distention, No Mass Extremities: Normal Inspection, Normal Range of Motion, Non-Tender, No Pedal Edema, Normal Capillary Refill Skin: Warm, Dry, Intact Psy/Mental Status: Alert, Normal Affect, Normal Mood Sepsis Event Note - Evaluation Sepsis Screening Result: No Definite Risk - Focused Exam Vital Signs: Vital Signs Temp Pulse Resp BP Pulse Ox 06/13/20 07:31 37.7 C 84 14 110/59 L 92 L 08/31/19 04:00 37.3 C 78 14 105/58 L 92 L 08/31/19 00:00 37.2 C 74 14 107/59 L 94 L Date Exam was Performed: 08/31/19 Time Exam was Performed: 10:47 - Problem List & Annotations (1) Incomplete uterovaginal prolapse SNOMED Code(s): 373717490 Code(s): N81.2 - INCOMPLETE UTEROVAGINAL PROLAPSE Status: Acute Current Visit: Yes - Problem List Review Problem List Initiated/Reviewed/Updated: Yes - My Orders Last 24 Hours: Active Orders 24 hr Category Date Time Status Ready for Discharge [RC] PER UNIT ROUTINE Care 08/31/19 10:46 Ordered Regular Diet [DIET] Diet 08/30/19 Lunch Active Docusate Sodium [Colace] Med 08/30/19 21:00 Active 100 mg PO BID Medication Orders Docusate Sodium (Colace) 100 mg PO BID [facility] Last Admin: 08/31/19 08:30 Dose: 100 mg Admin: 08/30/19 21:20 Dose: 100 mg Epinephrine HCl (Epinephrine 1:10,000) 1 mg IVPUSH ASDIRECTED PRN PRN Reason: ACLS Guidelines Lactated Ringer's (Ringers, Lactated) 1,000 mls @ 125 mls/hr IV ASDIRECTED [facility] Last Admin: 08/30/19 12:43 Dose: 125 mls/hr Infusion: 08/30/19 12:43 Dose: 125 mls/hr Admin: 08/30/19 07:15 Dose: 125 mls/hr Ketorolac Tromethamine (Toradol) 30 mg IVPUSH Q6H PRN PRN Reason: Pain (severe 7-10) Stop: 09/04/19 09:21 Morphine Sulfate (Morphine) 4 mg IVPUSH Q2H PRN PRN Reason: Pain (severe 7-10) Last Admin: 08/30/19 11:22 Dose: 4 mg Ondansetron HCl (Zofran) 4 mg IVPUSH Q6H PRN PRN Reason: Nausea/Vomiting Oxycodone/Acetaminophen (Percocet 325-5 Mg) 1 tab PO Q4H PRN PRN Reason: Pain (moderate 4-6) Last Admin: 08/31/19 04:48 Dose: 1 tab Oxycodone/Acetaminophen (Percocet 325-5 Mg) 2 tab PO Q4H PRN PRN Reason: Pain (moderate 4-6) Last Admin: 08/31/19 08:31 Dose: 2 tab Admin: 08/30/19 22:30 Dose: 2 tab Admin: 08/30/19 18:20 Dose: 2 tab Admin: 08/30/19 13:28 Dose: 2 tab Promethazine HCl (Phenergan) 25 mg IM Q6H PRN PRN Reason: Nausea/Vomiting - Assessment Assessment (Free Text/Narrative):: POD#1 after TVH, anterior repair, stable, minimal discharge. Has voided, pain is controlled with oral medications. Reviewed operative findings - Plan Plan (Free Text/Narrative):: Dismiss to home, discharge instructions and precautions reviewed.
== END 2019-08-31 11:25 | disposition home or self-care (01) ==
LOC: MW.SDS 06:41 → MW.MS 10:03 → MW.SDS 08-31 11:25
PROVIDERS: ATTEND Obstetrics & Gynecology
DX: D25.9 Leiomyoma of uterus, unspecified (principal); N81.3 Complete uterovaginal prolapse; N95.2 Postmenopausal atrophic vaginitis; E78.00 Pure hypercholesterolemia, unspecified; F90.9 Attention-deficit hyperactivity disorder, unspecified type; Z87.891 Personal history of nicotine dependence
CPT/HCPCS: 36415; 57240; 58270; 80048; 85025; 85027; 86850; 86900; 86901; A9270; J0131; J0690; J1100; J2001; J2250; J2270; J2405; J2704; J3010; J3490; J7120; 00944

== ENCOUNTER 2024-02-19 09:06 | Emergency (ER) | payer BC, MEDICARE, OTHER ==
[2024-02-19] MEDS: traMADol 50 MG Tab PO ONE (09:34)
[2024-02-19] MEDS: Acetaminophen/HYDROcodone 325-5 MG Tab PO ONE (11:02)
[2024-02-19] MEDS: Ondansetron 4 MG Tab.DIS PO ONE (11:02)
== END 2024-02-19 12:13 | disposition home or self-care (01) ==
LOC: MW.ED 09:06
DX: S76.311A Strain of muscle, fascia and tendon of the posterior muscle group at thigh level, right thigh, initial encounter (principal); S76.111A Strain of right quadriceps muscle, fascia and tendon, initial encounter; E78.00 Pure hypercholesterolemia, unspecified; Z86.16 Personal history of COVID-19; Z90.710 Acquired absence of both cervix and uterus; Z79.899 Other long term (current) drug therapy; Z75.8 Other problems related to medical facilities and other health care; W31.89XA Contact with other specified machinery, initial encounter; Y93.01 Activity, walking, marching and hiking
CPT/HCPCS: 73552; 73562; 99283; A9270